=== PATIENT | male | born 1980 | race Caucasian/White ===

== ENCOUNTER 2017-04-22 21:47 | Emergency (ER) | payer SELFPAY ==
[~2017-04-22] VITALS: Ht 91.4 cm; Wt 99.8 kg
[2017-04-22 22:00] VITALS: BP 165/104
--- NOTE | 2017-04-22 22:38 | ED General ---
General Chief Complaint: General Problems/Pain Stated Complaint: ANXIETY Nursing Triage Note: Pt presents to ED by EMS from [facility] after being called by pt for somewhere to charge his phone and because he was cold. Temp 96.5 in triage, multiple warm blankets provided and wet clothing reomved. Pt thoughts are all over the place, denies drug use tonight but reports he sometimes uses weed and meth. Denies alcohol use. Pt states he is homeless, is only in town because her rode up here with a friend to go to the [employer] and the friend left him. Pt went to a [facility], was given gloves/hat and a meal. Is wanting to go to [place] to a homeless [facility] and then head to [place] [facility] at bedside. No acute distress noted. Pt denies any needs. Source of Information: Patient Exam Limitations: Other (poor historian, flight of ideas) History of Present Illness Date Seen by Provider: Apr 22, 2017 Time Seen by Provider: 22:00 Initial Comments 36-year-old male patient presents to the emergency department via [facility] from the [facility] with reports of needing somewhere to get warm and to charge his phone. Patient had called EMS due to being cold. Patient reports riding to the [employer] from [place] with a friend. Reports friend leaving him at the [employer]. Denies knowing anyone else in [place]. States he did go to a [employer] party earlier [facility] and was able to sleep a little bit and get warm. States he is planning on moving to [place]. He does have a friend that goes to school at [employer], but states he is not able to stay at her apartment. She is supposed to take him to [place] tomorrow. Patient's history is very difficult to follow as he is a poor historian and flight of ideas. Difficult to keep focused. Denies any recent weed, meth, or alcohol use. Timing/Duration: 1/2 Hour, Other (improving since being picked up by EMS.) Modifying Factors: improves with Other (improved with hot packs.) Allergies and Home Medications Allergies Coded Allergies: No Known Drug Allergies (Unverified , 04/22/17) Constitutional: no symptoms reported EENTM: no symptoms reported Respiratory: no symptoms reported Cardiovascular: no symptoms reported Gastrointestinal: no symptoms reported Genitourinary: no symptoms reported Musculoskeletal: other (hands and feet were very cold and painful) Skin: other (hands and feet were turning red.) Psychiatric/Neurological: No Symptoms Reported All Other Systems Reviewed Negative Unless Noted: Yes (Negative excepted noted.) Past Wncieta-Voksws-Daynxl Hx Patient Social History Alcohol Use: Denies Use Recreational Drug Use: Yes (marijuana and meth (none since new years srikanth)) Smoking Status: Current Everyday Smoker (1 PPD) Surgeries History of Surgeries: Yes Surgeries: Orthopedic (rt hand) Respiratory History of Respiratory Disorde: No Cardiovascular History of Cardiac Disorders: Yes Cardiac Disorders: Hypertension (took medicine from Dec 2016-Mar 18, 2017. stopped the meds on his own.) Neurological History of Neurological Disord: No Genitourinary History of Genitourinary Disor: No Gastrointestinal History of Gastrointestinal Di: No Musculoskeletal History of Musculoskeletal Dis: No Endocrine History of Endocrine Disorders: No HEENT History of HEENT Disorders: No Psychosocial History of Psychiatric Problem: Yes Behavioral Health Disorders: Anxiety Reviewed Nursing Assessment Reviewed/Agree w Nursing PMH: Yes Family Medical History Significant Family History: No Pertinent Family Hx Physical Exam Vital Signs Vital Sign - Last 12Hours 04/22/17 22:00 Temp 96.5 Pulse 84 Resp 18 B/P (MAP) 165/104 (124) Pulse Ox 96 O2 Delivery Room Air Capillary Refill : General Appearance: No Apparent Distress, WD/WN, Anxious (flight of ideas, difficult to keep focused. ) HEENT: PERRL/EOMI, TMs Normal, Normal ENT Inspection, Pharynx Normal, Other ( pupils dilated bilaterally. Bilateral external ears are erythematous without necrosis or vesicles.) Neck: Full Range of Motion, Normal Inspection, Non Tender, Supple Respiratory: Lungs Clear, Normal Breath Sounds, No Accessory Muscle Use, No Respiratory Distress Cardiovascular: Regular Rate, Rhythm, No Edema, No Murmur, Normal Peripheral Pulses Gastrointestinal: Normal Bowel Sounds, No Organomegaly, Non Tender, Soft Back: No Vertebral Tenderness, Other (erythema of the bilateral low back consistent with frostnip) Extremity: Normal Capillary Refill, Normal Range of Motion, Non Tender, No Pedal Edema, Other (erythema of the bilateral hands including fingers and the bilateral feet/toes consistent with frostbite. No evidence of necrosis noted. ) Neurologic/Psychiatric: Alert, Oriented x3, No Motor/Sensory Deficits, production engineer track II- XII Norm as Tested, Other (anxious, flight of ideas, difficulty keep focused.) Skin: Warm/Dry, Cool, No Cyanosis, No Ecchymosis, Erythema (see extremity and head exams above.), No Mottled, No Petechia Progress/Results/Core Measures Suspected Sepsis SIRS Temperature: Pulse: Respiratory Rate: Blood Pressure / Mean: Results/Orders Vital Signs/I&O Vital Sign - Last 12Hours 04/22/17 22:00 Temp 96.5 Pulse 84 Resp 18 B/P (MAP) 165/104 (124) Pulse Ox 96 O2 Delivery Room Air Capillary Refill : Departure Impression Impression: Primary Impression: Frostnip Qualified Codes: T33.90XA - Superficial frostbite of unspecified sites, initial encounter Additional Impressions: Anxiety History of hypertension Disposition: HOME, SELF-CARE Condition: Improved Departure-Patient Inst. Decision time for Depature: 01:17 Patient Instructions: Frostbite (DC), High Blood Pressure (DC) Add. Discharge Instructions: All discharge instructions reviewed with patient and/or family. Voiced understanding. Tylenol extra strength [id number] as directed for pain. Ibuprofen 800 mg by mouth every 8 hours as needed for pain. Keep all extremities warm and dry. Avoid exposure to the cold. Find somewhere safe and warm to say until your ride can pick you up in the morning. Follow-up with the primary care provider of your choice when you get back home or to your desired destination. Call for appointment time. Return to the emergency department for worsened symptoms, increased pain, discoloration of the fingers/toes/ears/ nose, fever, or any other concerns. Work/School Note: [employer] Apr 22, 2017 22:38
== END 2017-04-23 08:13 | disposition home or self-care (01) ==
LOC: ER 21:49 → EDBD 21:49 → ER 04-23 08:13
DX: T33.521A Superficial frostbite of right hand, initial encounter (principal); T33.522A Superficial frostbite of left hand, initial encounter; I10 Essential (primary) hypertension; F41.9 Anxiety disorder, unspecified; F17.210 Nicotine dependence, cigarettes, uncomplicated; F12.10 Cannabis abuse, uncomplicated; F15.10 Other stimulant abuse, uncomplicated; X31.XXXA Exposure to excessive natural cold, initial encounter
CPT/HCPCS: 99283